=== PATIENT | female | born 1995 | race Hispanic/Latino ===

== ENCOUNTER 2017-10-08 05:44 | Emergency (ER) | payer BC ==
[2017-10-08 06:53] LABS: Albumin 4.6 g/dL (3.2-5.5); Bilirubin Direct 0.1 mg/dL (0-0.2); Bilirubin Total 0.5 mg/dL (0.3-1.2); Protein, Total 8.4 g/dL (6.0-8.3)
[2017-10-08] MEDS ORDERED: ONDANSETRON 4 MG/2 ML VIAL ONE (08:26)
[2017-10-08] MEDS ORDERED: KETOROLAC 30 MG/ML INJ ONE (08:26)
[2017-10-08] MEDS ORDERED: NA CHLORIDE 0.9% 1,000 ML ONE (08:26)
[2017-10-08 08:36] LABS: Absolute Lymphocytes (CBC) 3.8 K/uL (0.7-4.9); Absolute Monocytes 0.6 K/uL (0.1-1.3); Absolute Neutrophil 4.3 K/uL (1.8-8.0); Basophils % 0.5 % (0-1.3); Eosinophils % 0.9 % (0-4.4); Hematocrit 37.3 % (36.0-45.0); Lymphocytes % 43.3 % (15.3-44.8); MCH 23.9 pg (27.0-35.0); MCV 76.2 fL (80-100); MPV 9.5 fL (7.6-11.3); Monocytes % 6.3 % (3.3-12.3)
--- NOTE | 2017-10-08 08:45 | EDPHYS ---
Physician Documentation [facility] Name: Silvia Bradford Age: 22 yrs Sex: Female : 1995 Arrival Date: 10/08/2017 Time: 05:45 Bed 16 Private MD: ED Physician Gavin Yin HPI: 10/08 06:03 This 22 yrs old Female presents to ER via Ambulatory with complaints of kb Abdominal Pain. 06:03 The patient presents with abdominal pain in the right upper quadrant. Onset: The kb symptoms/episode began/occurred 2 week(s) ago. The symptoms do not radiate. Associated signs and symptoms: Pertinent positives: nausea, Pertinent negatives: anorexia, blood in stools, chest pain, constipation, diarrhea, dysuria, fever, headache, hematuria, palpitations, shortness of breath, vaginal discharge, vomiting, vomiting blood. The symptoms are described as achy. Modifying factors: The symptoms are alleviated by nothing, the symptoms are aggravated by food. Severity of pain: At its worst the pain was moderate in the emergency department the pain is unchanged. The patient has not experienced similar symptoms in the past. The patient has not recently seen a physician. 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 - Social history:: Smoking status: Patient/guardian denies using tobacco. ROS: 06:02 Constitutional: Negative for fever, chills, and weight loss, Cardiovascular: Negative kb for chest pain, palpitations, and edema, Respiratory: Negative for shortness of breath, cough, wheezing, and pleuritic chest pain, Back: Negative for injury and pain, : Negative for injury, bleeding, discharge, and swelling, MS/Extremity: Negative for injury and deformity, Skin: Negative for injury, rash, and discoloration, Neuro: Negative for headache, weakness, numbness, tingling, and seizure. 06:02 Abdomen/GI: Positive for abdominal pain, nausea, Negative for vomiting, diarrhea, constipation, abdominal cramps, abdominal distension, anorexia. Exam: 06:01 Constitutional: This is a well developed, well nourished patient who is awake, alert, kb and in no acute distress. Head/Face: Normocephalic, atraumatic. Chest/axilla: Normal chest wall appearance and motion. Nontender with no deformity. No lesions are appreciated. Cardiovascular: Regular rate and rhythm with a normal S1 and S2. No gallops, murmurs, or rubs. Normal PMI, no JVD. No pulse deficits. Respiratory: Lungs have equal breath sounds bilaterally, clear to auscultation and percussion. No rales, rhonchi or wheezes noted. No increased work of breathing, no retractions or nasal flaring. Back: No spinal tenderness. No costovertebral tenderness. Full range of motion. Skin: Warm, dry with normal turgor. Normal color with no rashes, no lesions, and no evidence of cellulitis. MS/ Extremity: Pulses equal, no cyanosis. Neurovascular intact. Full, normal range of motion. Neuro: Awake and alert, GCS 15, oriented to person, place, time, and situation. Cranial nerves II-XII grossly intact. Motor strength 5/5 in all extremities. Sensory grossly intact. Cerebellar exam normal. Normal gait. 06:01 Abdomen/GI: Inspection: abdomen appears normal, Bowel sounds: normal, in all quadrants, Palpation: soft, in all quadrants, nontender, in the left upper quadrant, right lower quadrant and left lower quadrant, moderate abdominal tenderness, in the right upper quadrant. Vital Signs: 06:04 BP 137 / 79; Pulse 81; Resp 16; Temp 97.9; Pulse Ox 100% on R/A; Weight 86.18 kg; aa1 Height 5 ft. 6 in. (167.64 cm); Pain 9/10; 07:15 BP 124 / 74; Pulse 76; Resp 18; Pulse Ox 99% on R/A; ph 08:16 BP 125 / 78; Pulse 78; Resp 15; Pulse Ox 98% on R/A; mh5 06:04 Body Mass Index 30.67 (86.18 kg, 167.64 cm) aa1 MDM: 05:57 Patient medically screened. kb 06:01 Data reviewed: vital signs, nurses notes. Data interpreted: Pulse oximetry: on room air kb is 100 %. Interpretation: normal. 08:39 Counseling: I had a detailed discussion with the patient and/or guardian regarding: the kb historical points, exam findings, and any diagnostic results supporting the discharge/admit diagnosis, lab results, radiology results, the need for outpatient follow up, a general surgeon, to return to the emergency department if symptoms worsen or persist or if there are any questions or concerns that arise at home. 10/08 06:01 Order name: Amylase, Serum; Complete Time: 08:39 kb 10/08 06:01 Order name: Basic Metabolic Panel; Complete Time: 08:39 kb 10/08 06:01 Order name: CBC with Diff; Complete Time: 08:39 kb 10/08 06:01 Order name: Hepatic Function; Complete Time: 08:39 kb 10/08 06:01 Order name: Lipase; Complete Time: 08:39 kb 10/08 06:38 Order name: Urine Dipstick--Ancillary (enter results) 10/08 06:01 Order name: Urine Test (obtain specimen); Complete Time: 06:32 kb 10/08 06:01 Order name: Labs collected and sent; Complete Time: 06:32 kb 10/08 06:01 Order name: US Abdomen Limited; Complete Time: 09:23 kb 10/08 06:38 Order name: Urine --Ancillary (enter results) 10/08 06:01 Order name: Urine Dipstick-Ancillary (obtain specimen); Complete Time: 06:32 kb Administered Medications: 08:48 Drug: Zofran 4 mg Route: IVP; Site: right antecubital; ph 08:48 Drug: NS 0.9% 1000 ml Route: IV; Rate: 1000 ml; Site: right antecubital; ph 08:49 Drug: TORadol 30 mg Route: IVP; Site: right antecubital; ph Disposition: 10/09 03:28 Co-signature as Attending Physician, Gavin Yin MD I agree with the assessment and 4 plan of care. Disposition: 10/08/17 08:44 Discharged to Home. Impression: Cholelithiasis. - Condition is Stable. - Discharge Instructions: Cholelithiasis, [id number]. - Prescriptions for Zofran 4 mg Oral Tablet - take 1 tablet by ORAL route every 6 hours As needed; 20 tablet. Diclofenac Sodium 75 mg Oral Tablet, Delayed Release (E.C.) - take 1 tablet by ORAL route 2 times per day As needed; 30 tablet. - Medication Reconciliation Form, Thank You Letter, Antibiotic Education, Prescription Opioid Use form. - Follow up: Emergency Department; When: As needed; Reason: Worsening of condition. Follow up: Private Physician; When: 2 - 3 days; Reason: Recheck today's complaints, Continuance of care, Re-evaluation by your physician. Signatures: Dispatcher [employer] EDMS Dolly Kc, FUR DRUMMER-C FUR DRUMMER-CkMarija Kaur, RN RN aa1 Deedee Elkins RN RN ph Gavin Yin MD MD tw4 Corrections: (The following items were deleted from the chart) 10/08 09:24 08:44 10/08/2017 08:44 Discharged to Home. Impression: Cholelithiasis. Condition is ph Stable. Discharge Instructions: Cholelithiasis, [id number]. Prescriptions for Zofran 4 mg Oral Tablet - take 1 tablet by ORAL route every 6 hours As needed; 20 tablet, Diclofenac Sodium 75 mg Oral Tablet, Delayed Release (E.C.) - take 1 tablet by ORAL route 2 times per day As needed; 30 tablet. and Forms are Medication Reconciliation Form, Thank You Letter, Antibiotic Education, Prescription Opioid Use. Follow up: Emergency Department; When: As needed; Reason: Worsening of condition. Follow up: Private Physician; When: 2 - 3 days; Reason: Recheck today's complaints, Continuance of care, Re-evaluation by your physician. kb
--- NOTE | 2017-10-08 08:45 | ER ---
Nurse's Notes [facility] Name: Silvia Bradford Age: 22 yrs Sex: Female : 1995 Arrival Date: 10/08/2017 Time: 05:45 Bed 16 Private MD: Diagnosis: Cholelithiasis Presentation: 10/08 06:01 Presenting complaint: Patient states: upper abd pain for past couple days which has aa1 become increasingly worse. States pain is worse after eating. Transition of care: patient was not received from another setting of care. Onset of symptoms was September 19, 2017. Initial Sepsis Screen: Does the patient meet any 2 criteria? No. Patient's initial sepsis screen is negative. Does the patient have a suspected source of infection? Yes: Acute abdominal pain. Care prior to arrival: None. 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 - Social history:: Smoking status: Patient/guardian denies using tobacco. Screenin:10 Abuse screen: Denies threats or abuse. Denies injuries from another. Nutritional bp screening: No deficits noted. Tuberculosis screening: No symptoms or risk factors identified. Fall Risk None identified. Assessment: 06:10 General: Appears in no apparent distress. uncomfortable, Behavior is calm, cooperative, bp appropriate for age. Pain: Complains of pain in right upper quadrant and left upper quadrant. Neuro: Level of Consciousness is awake, alert, obeys commands, Oriented to person, place, time, situation, Appropriate for age. Cardiovascular: No deficits noted. Respiratory: Airway is patent Respiratory effort is even, unlabored, Respiratory pattern is regular, symmetrical. GI: Bowel sounds present X 4 quads. Abd is soft X 4 quads Abdomen is tender to palpation in right upper quadrant and left upper quadrant. : No signs and/or symptoms were reported regarding the genitourinary system. EENT: No deficits noted. Derm: No deficits noted. Musculoskeletal: Circulation, motion, and sensation intact. Range of motion: intact in all extremities. 06:49 Reassessment: U/S COMPLETED. ALL CURRENT ORDERS IN PROCESS, RESULTS PENDING. bp 07:38 Reassessment: Patient appears in no apparent distress at this time. Patient and/or ph family updated on plan of care and expected duration. Pain level reassessed. Patient is alert, oriented x 3, equal unlabored respirations, skin warm/dry/pink. Pt resting quietly, awaiting lab results, VSS, will continue to monitor. 08:49 Reassessment: Patient appears in no apparent distress at this time. Patient and/or ph family updated on plan of care and expected duration. Pain level reassessed. Patient is alert, oriented x 3, equal unlabored respirations, skin warm/dry/pink. ERP at bedside to discuss lab and US results, awaiting discharge. Vital Signs: 06:04 BP 137 / 79; Pulse 81; Resp 16; Temp 97.9; Pulse Ox 100% on R/A; Weight 86.18 kg; aa1 Height 5 ft. 6 in. (167.64 cm); Pain 9/10; 07:15 BP 124 / 74; Pulse 76; Resp 18; Pulse Ox 99% on R/A; ph 08:16 BP 125 / 78; Pulse 78; Resp 15; Pulse Ox 98% on R/A; mh5 06:04 Body Mass Index 30.67 (86.18 kg, 167.64 cm) aa1 ED Course: 05:45 Patient arrived in ED. am2 05:54 Dolly Kc FNP-C is PHCP. kb 05:54 Kiran Griffin MD is Attending Physician. kb 05:54 Gavin Yin MD is Attending Physician. kb 06:00 Evens Palomares, KIMBERLEY is Primary Nurse. bp 06:02 Triage completed. aa1 06:04 Arm band placed on right wrist. Patient placed in an exam room, on a stretcher. aa1 06:10 Patient has correct armband on for positive identification. Bed in low position. Call bp light in reach. Side rails up X2. 06:33 Missed attempt(s): 20 gauge in left antecubital area. Bleeding controlled, band aid bp applied, catheter tip intact. 06:53 Ultrasound completed. Patient tolerated well. aa4 06:53 US Abdomen Limited In Process Unspecified. EDMS Administered Medications: 08:48 Drug: Zofran 4 mg Route: IVP; Site: right antecubital; ph 08:48 Drug: NS 0.9% 1000 ml Route: IV; Rate: 1000 ml; Site: right antecubital; ph 08:49 Drug: TORadol 30 mg Route: IVP; Site: right antecubital; ph Outcome: 08:44 Discharge ordered by . kb 09:24 Patient left the ED. ph Signatures: Dispatcher [employer] EDMS Dolly Kc, JAYME-C INSULATION MANAGER-Marija Lara RN RN aa1 Rosa Jauregui aa4 Deedee Elkins RN RN Charla Waite [facility] Rosa D[place] 2 Evens Palomares, RN RN bp
--- NOTE | 2017-10-08 09:18 | RAD REPORT ---
EXAM DESCRIPTION: US - Abdomen Exam Limited - 10/08/2017 6:54 am CLINICAL HISTORY: Abdominal pain. COMPARISON: 02/03/2010 FINDINGS: The gallbladder demonstrates 8 mm gallstone with contracted gallbladder noted. The patient is reported to not have been NPO prior to this ultrasound. No pericholecystic fluid or gallbladder w all thickening. The common bile duct is normal measuring 3 mm. The liver demonstrates no findings of intrahepatic biliary dilatation. IMPRESSION: Contracted gallbladder containing an 8 mm gallstone.
[2017-10-08 09:29] VITALS: TEMP 97.9
[2017-10-08 09:31] VITALS: BP 125/78; O2SAT 98
[2017-10-08 09:50] LABS: Urine Blood 2+ (NEG); Urine Glucose NEGATIVE (NEG); Urine Protein NEGATIVE (NEG)
== END 2017-10-08 09:24 | disposition home or self-care (01) ==
LOC: ER 05:44
DX: K80.20 Calculus of gallbladder without cholecystitis without obstruction (principal); I10 Essential (primary) hypertension; Z88.0 Allergy status to penicillin; Z88.1 Allergy status to other antibiotic agents; Z88.3 Allergy status to other anti-infective agents
CPT/HCPCS: 36415; 76705; 80048; 80076; 81003; 81025; 82150; 83690; 85025; 96374; 96375; 99283; J2405; J7030

== ENCOUNTER 2017-10-15 06:23 | Emergency (ER) | payer BC ==
[2017-10-15] MEDS ORDERED: NA CHLORIDE 0.9% 1,000 ML ONE (06:58)
[2017-10-15] MEDS ORDERED: KETOROLAC 30 MG/ML INJ ONE (06:58)
[2017-10-15 07:09] LABS: Absolute Lymphocytes (CBC) 3.3 K/uL (0.7-4.9); Absolute Monocytes 0.5 K/uL (0.1-1.3); Absolute Neutrophil 3.2 K/uL (1.8-8.0); Basophils % 0.5 % (0-1.3); Eosinophils % 1.5 % (0-4.4); Hematocrit 36.5 % (36.0-45.0); Lymphocytes % 46.5 % (15.3-44.8); MCH 23.7 pg (27.0-35.0); MPV 9.2 fL (7.6-11.3); Monocytes % 6.9 % (3.3-12.3); RBC Red Blood Cell Count 4.81 M/uL (3.86-4.86)
[2017-10-15 07:11] LABS: Bicarbonate 28 mEq/L (21-31); Glucose Level 95 mg/dL (65-120); Lipase 33 U/L (22-51); Potassium 3.8 mEq/L (3.6-5.0); Sodium Level 138 mEq/L (135-145)
[2017-10-15 07:17] LABS: ALT/SGPT 23 IU/L (10-60); AST/SGOT 28 IU/L (10-42); Albumin 4.1 g/dL (3.2-5.5); Alkaline Phosphatase 67 IU/L (42-121); Amylase Level 57 U/L (28-100); BUN Blood Urea Nitrogen 11 mg/dL (6-20); Bilirubin Direct < 0.1 mg/dL (0-0.2); Bilirubin Total 0.3 mg/dL (0.3-1.2); Protein, Total 7.6 g/dL (6.0-8.3)
--- NOTE | 2017-10-15 08:38 | RAD REPORT ---
EXAM DESCRIPTION: CT - Abdomen Pelvis W Contrast - 10/15/2017 8:13 am CLINICAL HISTORY: Abdominal pain with right upper quadrant pain for 1 month COMPARISON: none. TECHNIQUE: Computed axial tomography of the abdomen pelvis was obtained. 100 cc Isovue-300 was admin istered intravenously. Oral contrast was not requested which limits evaluation of bowel. All CT scans are performed using dose optimization technique as appropriate and may include automated exposure control or mA/KV adjustment according to patient size. FINDINGS: The liver, spleen, pancreas, adrenal and kidneys appear unremarkable. There is no evidence of diverticulitis. The appendix is normal. An adnexal mass is not seen IMPRESSION: No acute abnormality is displayed.
--- NOTE | 2017-10-15 08:46 | EDPHYS ---
Physician Documentation [facility] Name: Silvia Bradford Age: 22 yrs Sex: Female : 1995 Arrival Date: 10/15/2017 Time: 06:26 Bed 14 Private MD: ED Physician Homero Buchanan HPI: 10/15 06:44 This 22 yrs old Female presents to ER via Unassigned with complaints of kb Abdominal Pain. 06:44 The patient presents with abdominal pain in the right upper quadrant. Onset: The kb symptoms/episode began/occurred 1 month(s) ago. The symptoms do not radiate. Associated signs and symptoms: Pertinent positives: nausea and vomiting, Pertinent negatives: anorexia, blood in stools, chest pain, constipation, diarrhea, dysuria, fever, headache, hematuria, palpitations, shortness of breath, vaginal discharge, vomiting blood. The symptoms are described as sharp. Modifying factors: The symptoms are alleviated by nothing, the symptoms are aggravated by food, pressure. Severity of pain: At its worst the pain was moderate in the emergency department the pain is unchanged. The patient has not experienced similar symptoms in the past. The patient has been recently seen by a physician: Dr. briceno The patient has been recently seen at the [facility] Emergency Department, last week, for similar complaints labs were performed, an ultrasound was performed, was given a prescription for pain medications, was given a prescription for an antiemetic. Pt reports RUQ pain for one month. Was seen here one week ago and diagnosed with cholelithiasis. Pt followed up with Dr Briceno's office and was told she needed a hyda scan, but she is not able to get it done until the end of the month. States the pain medication she was prescribed only works for a short time and then the pain comes back. . Historical: - Allergies: 06:48 Bactrim; mg2 06:48 PENICILLINS; mg2 06:48 Clindamycin; mg2 06:48 Demerol; mg2 - Home Meds: 06:48 Testosterone IM every 10 days [Active]; mg2 - PMHx: 06:48 EAR ACHES; Migraines; Hypertension; mg2 - Immunization history:: Flu vaccine is up to date. - Social history:: Smoking status: unknown. ROS: 06:43 Constitutional: Negative for fever, chills, and weight loss, Cardiovascular: Negative kb for chest pain, palpitations, and edema, Respiratory: Negative for shortness of breath, cough, wheezing, and pleuritic chest pain, Back: Negative for injury and pain, : Negative for injury, bleeding, discharge, and swelling, MS/Extremity: Negative for injury and deformity, Skin: Negative for injury, rash, and discoloration, Neuro: Negative for headache, weakness, numbness, tingling, and seizure. 06:43 Abdomen/GI: Positive for abdominal pain, nausea and vomiting, Negative for diarrhea, constipation, abdominal cramps, abdominal distension, anorexia. Exam: 06:44 Constitutional: This is a well developed, well nourished patient who is awake, alert, kb and in no acute distress. Head/Face: Normocephalic, atraumatic. Chest/axilla: Normal chest wall appearance and motion. Nontender with no deformity. No lesions are appreciated. Cardiovascular: Regular rate and rhythm with a normal S1 and S2. No gallops, murmurs, or rubs. Normal PMI, no JVD. No pulse deficits. Respiratory: Lungs have equal breath sounds bilaterally, clear to auscultation and percussion. No rales, rhonchi or wheezes noted. No increased work of breathing, no retractions or nasal flaring. Back: No spinal tenderness. No costovertebral tenderness. Full range of motion. Skin: Warm, dry with normal turgor. Normal color with no rashes, no lesions, and no evidence of cellulitis. MS/ Extremity: Pulses equal, no cyanosis. Neurovascular intact. Full, normal range of motion. Neuro: Awake and alert, GCS 15, oriented to person, place, time, and situation. Cranial nerves II-XII grossly intact. Motor strength 5/5 in all extremities. Sensory grossly intact. Cerebellar exam normal. Normal gait. 06:44 Abdomen/GI: Inspection: abdomen appears normal, Bowel sounds: normal, in all quadrants, Palpation: soft, in all quadrants, nontender, in the left upper quadrant, right lower quadrant and left lower quadrant, moderate abdominal tenderness, in the right upper quadrant. Vital Signs: 06:49 BP 150 / 89; Pulse 65; Resp 18; Temp 99.2; Pulse Ox 100% on R/A; Weight 86.18 kg; mg2 Height 5 ft. 6 in. (167.64 cm); Pain 10/10; 07:22 BP 113 / 93; Pulse 72; Resp 16; Pulse Ox 100% ; Pain 8/10; jl7 08:07 BP 136 / 76; Pulse 69; Resp 16; Pulse Ox 100% ; jl7 06:49 Body Mass Index 30.67 (86.18 kg, 167.64 cm) mg2 MDM: 06:41 Patient medically screened. kb 06:43 Data reviewed: vital signs, nurses notes. Data interpreted: Pulse oximetry: on room air kb is 100 %. Interpretation: normal. 08:45 Counseling: I had a detailed discussion with the patient and/or guardian regarding: the kb historical points, exam findings, and any diagnostic results supporting the discharge/admit diagnosis, lab results, radiology results, the need for outpatient follow up, a general surgeon, a utilization management um nurse, to return to the emergency department if symptoms worsen or persist or if there are any questions or concerns that arise at home. 10/15 06:41 Order name: Amylase, Serum; Complete Time: 07:19 kb 10/15 06:41 Order name: Basic Metabolic Panel; Complete Time: 07:19 kb 10/15 06:41 Order name: CBC with Diff; Complete Time: 07:16 kb 10/15 06:41 Order name: Hepatic Function; Complete Time: 07:19 kb 10/15 06:41 Order name: Lipase; Complete Time: 07:19 kb 10/15 07:58 Order name: Urine Dipstick--Ancillary (enter results) bd 10/15 06:41 Order name: Urine Test (obtain specimen); Complete Time: 07:44 kb 10/15 06:41 Order name: IV Saline Lock; Complete Time: 06:56 kb 10/15 06:41 Order name: Labs collected and sent; Complete Time: 07:03 kb 10/15 06:41 Order name: Urine Dipstick-Ancillary (obtain specimen); Complete Time: 07:45 kb 10/15 06:41 Order name: CT Abd/Pelvis - W/Contrast; Complete Time: 08:38 kb 10/15 07:58 Order name: Urine --Ancillary (enter results) bd Administered Medications: 07:03 Drug: NS 0.9% 1000 ml Route: IV; Rate: 1000 ml; Site: right antecubital; mg2 08:00 Follow up: IV Status: Completed infusion jl7 07:03 Drug: TORadol 30 mg Route: IVP; Site: right antecubital; mg2 07:25 Follow up: Response: No adverse reaction; Pain is decreased jl7 Disposition: 10/15/17 08:46 Discharged to Home. Impression: Cholelithiasis. - Condition is Stable. - Discharge Instructions: Biliary Colic, Cholelithiasis, [id number]. - Prescriptions for Tramadol 50 mg Oral Tablet - take 1 tablet by ORAL route every 8 hours as needed; 12 tablet. - Medication Reconciliation Form, Thank You Letter, Antibiotic Education, Prescription Opioid Use form. - Follow up: Emergency Department; When: As needed; Reason: Worsening of condition. Follow up: Private Physician; When: 2 - 3 days; Reason: Recheck today's complaints, Continuance of care, Re-evaluation by your physician. Addendum: 11/04/2017 19:03 Co-signature as Attending Physician, Homero Buchanan MD. p winston Signatures: Dispatcher [employer] EDMS Dolly Kc, FAMILY COURT REGISTRAR-C FAMILY COURT REGISTRAR-Ckb Homero Buchanan MD MD pkl Ziggy Rees RN RN jl7 Dwain Aquino RN RN mg2 Corrections: (The following items were deleted from the chart) 10/15 08:57 08:46 10/15/2017 08:46 Discharged to Home. Impression: Cholelithiasis. Condition is jl7 Stable. Forms are Medication Reconciliation Form, Thank You Letter, Antibiotic Education, Prescription Opioid Use. Follow up: Emergency Department; When: As needed; Reason: Worsening of condition. Follow up: Private Physician; When: 2 - 3 days; Reason: Recheck today's complaints, Continuance of care, Re-evaluation by your physician. kb
--- NOTE | 2017-10-15 08:46 | ER ---
Nurse's Notes [facility] Name: Silvia Bradford Age: 22 yrs Sex: Female : 1995 Arrival Date: 10/15/2017 Time: 06:26 Bed 14 Private MD: Diagnosis: Cholelithiasis Presentation: 10/15 06:41 Presenting complaint: Patient states: she has RUQ Pain-X 1 month and she was here last mg2 Sunday for that complaint. she also is nauseated and dizzy for the past couple of days. she was told she needed a hyda scan but not scheduled til end of the month. Transition of care: patient was not received from another setting of care. Onset of symptoms was August 2017. Initial Sepsis Screen: Does the patient meet any 2 criteria? No. Patient's initial sepsis screen is negative. Does the patient have a suspected source of infection? No. Patient's initial sepsis screen is negative. Care prior to arrival: None. 06:41 Method Of Arrival: Ambulatory mg2 06:41 Acuity: RIZWANA 3 mg2 Historical: - Allergies: 06:48 Bactrim; mg2 06:48 PENICILLINS; mg2 06:48 Clindamycin; mg2 06:48 Demerol; mg2 - Home Meds: 06:48 Testosterone IM every 10 days [Active]; mg2 - PMHx: 06:48 EAR ACHES; Migraines; Hypertension; mg2 - Immunization history:: Flu vaccine is up to date. - Social history:: Smoking status: unknown. Screenin:52 Abuse screen: Denies threats or abuse. Denies injuries from another. Nutritional mg2 screening: No deficits noted. Tuberculosis screening: No symptoms or risk factors identified. Fall Risk 06:53 Fall Risk IV access (20 points). mg2 Assessment: 06:50 General: Appears in no apparent distress. comfortable, Behavior is calm, cooperative. mg2 Pain: Complains of pain in abdomen Pain does not radiate. Pain Pain began 1 month ago Is intermittent. Neuro: Level of Consciousness is awake, alert, obeys commands, Oriented to person, place, time, Seizure activity. Cardiovascular: Capillary refill < 3 seconds Patient's skin is warm and dry. Respiratory: Airway is patent Respiratory effort is even, unlabored, Respiratory pattern is regular, symmetrical. GI: Abdomen is non-distended, Reports lower abdominal pain, nausea. : No signs and/or symptoms were reported regarding the genitourinary system. EENT: Derm: Skin is intact, Skin is pink, warm \\T\\ dry. normal. Musculoskeletal: No signs and/or symptoms reported regarding the musculoskeletal system. 07:22 Reassessment: Pt sitting in bed, bolus infusing, updated on plan of care at this time. jl7 Pt states "The medication helped a little." Pain rated 8/10. VSS. 08:07 Reassessment: Patient and/or family updated on plan of care and expected duration. Pain jl7 level reassessed. Patient is alert, oriented x 3, equal unlabored respirations, skin warm/dry/pink. Vital Signs: 06:49 BP 150 / 89; Pulse 65; Resp 18; Temp 99.2; Pulse Ox 100% on R/A; Weight 86.18 kg; mg2 Height 5 ft. 6 in. (167.64 cm); Pain 10/10; 07:22 BP 113 / 93; Pulse 72; Resp 16; Pulse Ox 100% ; Pain 8/10; jl7 08:07 BP 136 / 76; Pulse 69; Resp 16; Pulse Ox 100% ; jl7 06:49 Body Mass Index 30.67 (86.18 kg, 167.64 cm) mg2 ED Course: 06:26 Patient arrived in ED. al2 06:30 Dolly Kc FNP-C [facility]. kb 06:30 Homero Buchanan MD is Attending Physician. kb 06:38 Dwain Aquino, RN is Primary Nurse. mg2 06:47 Triage completed. mg2 06:49 Arm band placed on right wrist. mg2 06:50 Radiology exam delayed due to lab results not completed at this time. (BUN/Creatinine). cw1 06:53 Patient has correct armband on for positive identification. Side rails up X 1. mg2 06:54 Radiology exam delayed due to IV insertion attempt and/or patient not having cw1 appropriate IV at this time. 06:56 Inserted saline lock: 20 gauge in right antecubital area, using aseptic technique. mg2 Blood collected. 07:18 Primary Nurse role handed off by Dwain Aquino, RN jl7 07:18 Ziggy Rees, KIMBERLEY is Primary Nurse. jl7 07:[address] via wheelchair. nj 08:13 CT Abd/Pelvis - W/Contrast In Process Unspecified. EDMS 08:14 CT completed. Patient tolerated procedure well. Patient moved back from CT. mw3 08:55 No provider procedures requiring assistance completed. IV discontinued, intact, jl7 bleeding controlled, No redness/swelling at site. Pressure dressing applied. Administered Medications: 07:03 Drug: NS 0.9% 1000 ml Route: IV; Rate: 1000 ml; Site: right antecubital; mg2 08:00 Follow up: IV Status: Completed infusion jl7 07:03 Drug: TORadol 30 mg Route: IVP; Site: right antecubital; mg2 07:25 Follow up: Response: No adverse reaction; Pain is decreased jl7 Outcome: 08:46 Discharge ordered by . hayley 08:55 Discharged to home ambulatory. jl7 08:55 Condition: stable 08:55 Discharge instructions given to patient, Instructed on discharge instructions, follow up and referral plans. medication usage, Demonstrated understanding of instructions, follow-up care, medications, Prescriptions given X 1. 08:57 Patient left the ED. jl7 Signatures: Dispatcher [employer] EDMS Dolly Kc, AUTOMATIC PRESSER-C AUTOMATIC PRESSER-CkVeronica Barron cw1 Fernandez Julien Jahala RN RN jl7 Yin Hines al2 Dwain Aquino, KIMBERLEY RN mg2 Marcela Samuels mw3 Corrections: (The following items were deleted from the chart) 06:53 06:52 Fall Risk mg2 mg2 07:04 06:50 GI: Abdomen is mg2 mg2 07:25 07:22 Reassessment: Pt sitting in bed, bolus infusing, updated on plan of care at this jl7 time. Pt denies pain at this time. VSS. jl7
[2017-10-15 09:01] VITALS: TEMP 99.2; O2SAT 100
[2017-10-15 09:04] VITALS: BP 136/76
[2017-10-15 13:12] LABS: Urine Blood NEGATIVE (NEG); Urine Glucose NEGATIVE (NEG); Urine Protein NEGATIVE (NEG); Urine Specific Gravity 1.015 (1.005-1.030)
== END 2017-10-15 08:57 | disposition home or self-care (01) ==
LOC: ER 06:23
DX: K80.20 Calculus of gallbladder without cholecystitis without obstruction (principal); I10 Essential (primary) hypertension; Z88.0 Allergy status to penicillin; Z88.1 Allergy status to other antibiotic agents; Z88.3 Allergy status to other anti-infective agents; Z88.5 Allergy status to narcotic agent
CPT/HCPCS: 36415; 74177; 80048; 80076; 81003; 81025; 82150; 83690; 85025; 96361; 96374; 99284; J7030; Q9967

== ENCOUNTER 2017-10-29 10:16 | Day surgery (SDC) | payer BC ==
[2017-10-29] MEDS ORDERED: CIPROFLOXACIN 400mg IV 400 MG/200 ML BAG IV ONE (10:47)
[2017-10-29 10:52] LABS: Absolute Lymphocytes (CBC) 3.1 K/uL (0.7-4.9); Absolute Monocytes 0.5 K/uL (0.1-1.3); Absolute Neutrophil 4.2 K/uL (1.8-8.0); Basophils % 0.6 % (0-1.3); Eosinophils % 1.1 % (0-4.4); Hematocrit 37.7 % (36.0-45.0); Lymphocytes % 39.5 % (15.3-44.8); MCH 23.6 pg (27.0-35.0); MPV 9.6 fL (7.6-11.3); Monocytes % 6.2 % (3.3-12.3); RBC Red Blood Cell Count 5.03 M/uL (3.86-4.86)
[2017-10-29 10:54] LABS: Specific Gravity 1.025 (1.005-1.030)
[2017-10-29 11:08] LABS: Bicarbonate 26 mEq/L (21-31); Glucose Level 86 mg/dL (65-120); Lipase 25 U/L (22-51); Potassium 3.5 mEq/L (3.6-5.0); Sodium Level 138 mEq/L (135-145)
[2017-10-29] MEDS ORDERED: PROPOFOL 200 MG/20 ML VIAL IV ONE (11:12)
[2017-10-29] MEDS ORDERED: ROCURONIUM 50 MG/5 ML VIAL IV ONE ×2 (11:13→11:14)
[2017-10-29] MEDS ORDERED: FENTANYL CITR 100 MCG/2 ML ONE ×2 (11:13→12:17)
[2017-10-29] MEDS ORDERED: ONDANSETRON HCL 40 MG/20 ML VIAL ONE (11:13)
[2017-10-29 11:14] LABS: ALT/SGPT 24 IU/L (10-60); AST/SGOT 26 IU/L (10-42); Albumin 4.4 g/dL (3.2-5.5); Alkaline Phosphatase 75 IU/L (42-121); Amylase Level 45 U/L (28-100); BUN Blood Urea Nitrogen 10 mg/dL (6-20); Bilirubin Direct 0.1 mg/dL (0-0.2); Bilirubin Total 0.5 mg/dL (0.3-1.2); Protein, Total 7.9 g/dL (6.0-8.3)
[2017-10-29] MEDS ORDERED: MIDAZOLAM HCL 2 MG/2 ML INJ ONE (11:14)
[2017-10-29] MEDS ORDERED: GLYCOPYRROLATE 0.2 MG/ML SYR ONE (11:14)
[2017-10-29] MEDS: Ringers Lactate 1,000 ML IV ONE ×2 (11:48→11:49)
[2017-10-29] MEDS ORDERED: NEOSTIGMINE 1 MG/ML -5 ML SYRINGE ONE (11:51)
[2017-10-29] MEDS: BUPIVACAINE 0.5% Inj,MDV 50 mL VIAL ONE ×2 (11:54→12:08)
[2017-10-29] MEDS ORDERED: Mastisol Adhesive Liq ONE (12:35)
--- NOTE | 2017-10-29 12:46 | P.BOP ---
Preoperative diagnosis: symptomatic cholelithiasis, biliary dyskinesia, RUQ abd pain Postoperative diagnosis: same Primary procedure: Laparoscopic cholecystectomy Ibm Websphere Commerce Developer: Cheyanne Hutchinson) Estimated blood loss: <10cc Specimen: gb Findings: as above Anesthesia: General Complications: None Transferred to: Recovery Room Condition: Good
[2017-10-29] MEDS ORDERED: MEPERIDINE HCL 50 MG/ML AMP ONE ×2 (12:59→13:23)
[2017-10-29] MEDS ORDERED: MORPHINE 4 MG/ML SYR ONE ×2 (13:00→13:10)
[2017-10-29] MEDS ORDERED: KETOROLAC 30 MG/ML INJ ONE (13:29)
[2017-10-29 13:47] VITALS: O2SAT 98
[2017-10-29] MEDS ORDERED: CODEINE 30MG/APAP 300MG TAB ONE (14:54)
[2017-10-29] MEDS ORDERED: HYDROCODONE/APAP 10/325 TAB ONE (15:34)
[2017-10-29 15:51] VITALS: BP 132/78; TEMP 97.5
--- NOTE | 2017-10-30 00:33 | DS ---
Date of Discharge: 10/29/2017 Diagnoses: Symptomatic cholelithiasis, acute cholecystitis, biliary dyskinesia, right upper quadrant abdominal pain. Procedure: Laparoscopic cholecystectomy. Disposition: Home. Activity: As tolerated. No heavy lifting. Followup: Follow up in my office in 1 week. Call for appointment [phone]. Keep area dry for 48 ho urs, then may shower. Keep Steri-Strips intact. Medications: Tylenol No. 3 q.4 hours p.r.n. pain, Cipro 500 p.o. q.12. SHANA/ANGEL Voice ID: [id number] Report ID: [id number]
--- NOTE | 2017-10-30 00:33 | OP ---
Date of Procedure: 10/29/2017 Surgeon: Bryan Waite MD Bit Sharpener: DANIEL Gant. Preoperative Diagnoses: Symptomatic cholelithiasis, biliary dyskinesia, right upper quadrant abdomin al pain. Postoperative Diagnoses: Symptomatic cholelithiasis, biliary dyskinesia, right upper quadrant abdomi nal pain. Procedure: Laparoscopic cholecystectomy. Specimen: Gallbladder. Anesthesia: General plus local. Indications: This is a case of a 22-year-old patient, comes to us with above diagnosis. Fully expla ined the benefits, alternatives, and risks of laparoscopic, possible open cholecystectomy which inclu de, but not limited to infection, bleeding, damage to adjacent structures, anesthesia complication, c holedocholithiasis, bile leak, pancreatitis, GA, and even . She also understands this may not r elieve any symptoms. She might need more than one surgical intervention. She understood, signed a c onsent. Description Of Procedure: The patient was brought to the operating room, placed in supine position. Anesthesia was done without complication. Abdominal area was prepped and draped in a sterile fashio n. Marcaine 0.5% was injected for local anesthetic, followed by sharp incision of the skin in the in fraumbilical region. Incision was carried down to fascia, which was opened under direct vision. Per itoneum was encountered, opened under direct vision. Vicryl #1 was placed inside the fascia. Selina trocar was carefully introduced. No bleeding was obtained. I placed 3 more trocars, 5 mm each one of them, in the right upper quadrant under direct visualization. This allowed me to put a grasper in the fundus of the gallbladder, another grasper in the infundibulum, retracted the gallbladder in inf erolateral fashion exposing the triangle of Calot obtaining critical view of safety. The cystic duct and artery were cleared isolated, freed circumferentially, and a connection between those and the ga llbladder were clearly identified. I proceeded to ligate those by using at least 3 clips proximal, 1 clip distal, and ligation in middle. Same was done with the cystic artery. No bile leak. No bleed ing. The gallbladder was removed from liver using Bovie cauterizer and removed from abdominal cavity using an EndoCatch through the umbilical incision. The area was inspected once again; no bile leak, no bleeding. Clips were intact. Gallbladder fossa with no bleeding. At that moment, I proceeded t o remove the trocars under direct vision, deflated pneumoperitoneum, closed the fascia with #1 Vicryl , irrigated the subcutaneous tissue, closed that with 3-0 chromic and skin in a subcuticular fashion with 3-0 chromic and a Steri-Strip on top. Sponge count and instrument counts were correct. The pat ient tolerated the procedure well. The patient was sent to Recovery in stable condition. SHANA/ANGEL Voice ID: [id number] Report ID: [id number]
== END 2017-10-29 15:48 | disposition home or self-care (01) ==
LOC: OR 10:16
PROVIDERS: ATTEND Surgery
PROC: 0FT44ZZ Resection of Gallbladder, Percutaneous Endoscopic Approach (ICD-10-PCS; principal; 2017-10-29 12:00)
DX: K80.10 Calculus of gallbladder with chronic cholecystitis without obstruction (principal); K82.8 Other specified diseases of gallbladder; Z88.0 Allergy status to penicillin; Z88.3 Allergy status to other anti-infective agents
CPT/HCPCS: 36415; 80048; 80076; 81025; 82150; 83690; 85025; 88304; J0744; J2175; J2250; J2405; J2710; J3010

== ENCOUNTER 2018-02-27 22:04 | Emergency (ER) | payer BC ==
--- NOTE | 2018-02-27 23:39 | ER ---
Nurse's Notes [facility] Name: Silvia Bradford Age: 23 yrs Sex: Female : 1995 Arrival Date: 02/27/2018 Time: 22:13 Bed 30 Private MD: Diagnosis: Acute serous otitis media, right ear Presentation: 02/27 22:19 Presenting complaint: Patient states: that 1 week ago she started to have right neck fc pain. Thought it was just they way she was sleeping. Then 3 days ago she started to have right ear pain and sore throat. Denies any fever. Transition of care: patient was not received from another setting of care. Onset of symptoms was February 20, 2018. Risk Assessment: Do you want to hurt yourself or someone else? Patient reports no desire to harm self or others. Initial Sepsis Screen: Does the patient meet any 2 criteria? HR > 90 bpm. Yes Does the patient have a suspected source of infection? No. Patient's initial sepsis screen is negative. Care prior to arrival: None. 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 - Social history:: Smoking status: Patient/guardian denies using tobacco, Patient/guardian denies using alcohol, street drugs. - Ebola Screening: : Patient negative for fever greater than or equal to 101.5 degrees Fahrenheit, and additional compatible Ebola Virus Disease symptoms Patient denies exposure to infectious person Patient denies travel to an Ebola-affected area in the 21 days before illness onset. Screenin:28 Abuse screen: Denies threats or abuse. Denies injuries from another. Nutritional mg2 screening: No deficits noted. Tuberculosis screening: No symptoms or risk factors identified. Fall Risk None identified. Assessment: 22:32 General: Appears in no apparent distress. comfortable, Behavior is calm, cooperative. mg2 Pain: Complains of pain in right ear and right side of the neck Pain does not radiate. Pain currently is 6 out of 10 on a pain scale. Quality of pain is described as aching, Pain began gradually, 8 days ago. Neuro: Level of Consciousness is awake, alert, obeys commands, Oriented to person, place, time, situation. Cardiovascular: Capillary refill < 3 seconds Patient's skin is warm and dry. Respiratory: Airway is patent Respiratory effort is even, unlabored, Respiratory pattern is regular, symmetrical. GI: No signs and/or symptoms were reported involving the gastrointestinal system. : No signs and/or symptoms were reported regarding the genitourinary system. EENT: No signs and/or symptoms were reported regarding the EENT system. EENT: No signs and/or symptoms were reported regarding the EENT system. Ear canal clear on both ears. Derm: Skin is intact, Skin is pink, warm \T\ dry. normal. Musculoskeletal: No signs and/or symptoms reported regarding the musculoskeletal system. Vital Signs: 22:23 BP 152 / 107; Pulse 109; Resp 20; Temp 98.2(O); Pulse Ox 99% on R/A; Weight 86.18 kg fc (R); Height 5 ft. 6 in. (167.64 cm) (R); Pain 9/10; 23:12 BP 134 / 75; Pulse 101; Resp 18; Pulse Ox 100% on R/A; mg2 22:23 Body Mass Index 30.67 (86.18 kg, 167.64 cm) fc ED Course: 22:13 Patient arrived in ED. al2 22:21 Triage completed. fc 22:26 Arm band placed on Patient placed in an exam room, on a stretcher. fc 22:32 Dwain Aquino, KIMBERLEY is Primary Nurse. mg2 22:34 No provider procedures requiring assistance completed. Patient did not have IV access mg2 during this emergency room visit. 23:05 Vicky Tran FNP-C [facility]. snw 23:05 Gavin Yin MD is Attending Physician. snw 23:51 Patient has correct armband on for positive identification. mg2 Administered Medications: 23:49 Drug: TORadol 60 mg Route: IM; Site: right gluteus; mg2 23:50 Follow up: Response: No adverse reaction; Medication administered at discharge. mg2 23:50 Drug: Zithromax 500 mg Route: PO; mg2 23:50 Follow up: Response: No adverse reaction; Medication administered at discharge. mg2 Outcome: 23:39 Discharge ordered by MD. ray 23:50 Discharged to home ambulatory. mg2 23:50 Condition: stable 23:50 Discharge instructions given to patient, Instructed on discharge instructions, follow up and referral plans. medication usage, Demonstrated understanding of instructions, follow-up care, medications, Prescriptions given X 2. 23:51 Patient left the ED. mg2 Signatures: Vicky Tran, LIAISON ENGINEER-C LIAISON ENGINEER-Csnw Dennise Ivey, RN RN Yin Anne Michele, RN RN mg2 Corrections: (The following items were deleted from the chart) 22:26 22:19 Initial Sepsis Screen: Does the patient meet any 2 criteria? No. Patient's fc initial sepsis screen is negative. Does the patient have a suspected source of infection? No. Patient's initial sepsis screen is negative. fc
--- NOTE | 2018-02-27 23:39 | EDPHYS ---
Physician Documentation [facility] Name: Silvia Bradford Age: 23 yrs Sex: Female : 1995 Arrival Date: 02/27/2018 Time: 22:13 Bed 30 Private MD: ED Physician Gavin Yin HPI: 02/27 23:48 This 23 yrs old Female presents to ER via Ambulatory with complaints of Neck snw Problem. 23:48 The patient or guardian complains of pain, that is acute. The symptoms are located on snw the right submandibular area and right sternocleidomastoid. Onset: The symptoms/episode began/occurred gradually, 1 week(s) ago, and became persistent. Context: The problem was sustained at home, The neck injury/problem resulted from from unknown cause. Associated signs and symptoms: Pertinent positives: ear pain started 2-3 day ago. Severity of symptoms: At their worst the symptoms were mild, moderate, in the emergency department the symptoms are unchanged. The patient has experienced similar episodes in the past. It is unknown whether or not the patient has recently seen a physician. pt states she sees an ENT and will make an appt. 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 - Social history:: Smoking status: Patient/guardian denies using tobacco, Patient/guardian denies using alcohol, street drugs. - Ebola Screening: : Patient negative for fever greater than or equal to 101.5 degrees Fahrenheit, and additional compatible Ebola Virus Disease symptoms Patient denies exposure to infectious person Patient denies travel to an Ebola-affected area in the 21 days before illness onset. ROS: 23:46 Constitutional: Negative for fever, chills, and weight loss, Eyes: Negative for injury, snw pain, redness, and discharge, ENT: Negative for injury and discharge, + right ear pain Neck: Negative for injury and swelling, + pain to right anterior cervical chain Cardiovascular: Negative for chest pain, palpitations, and edema, Respiratory: Negative for shortness of breath, cough, wheezing, and pleuritic chest pain, Abdomen/GI: Negative for abdominal pain, nausea, vomiting, diarrhea, and constipation, Back: Negative for injury and pain, : Negative for injury, bleeding, discharge, and swelling, MS/Extremity: Negative for injury and deformity, Skin: Negative for injury, rash, and discoloration, Neuro: Negative for headache, weakness, numbness, tingling, and seizure. Exam: 23:47 Head/Face: Normocephalic, atraumatic. Eyes: Pupils equal round and reactive to light, snw extra-ocular motions intact. Lids and lashes normal. Conjunctiva and sclera are non-icteric and not injected. Cornea within normal limits. Periorbital areas with no swelling, redness, or edema. Chest/axilla: Normal chest wall appearance and motion. Nontender with no deformity. No lesions are appreciated. Cardiovascular: Regular rate and rhythm with a normal S1 and S2. No gallops, murmurs, or rubs. Normal PMI, no JVD. No pulse deficits. Respiratory: Lungs have equal breath sounds bilaterally, clear to auscultation and percussion. No rales, rhonchi or wheezes noted. No increased work of breathing, no retractions or nasal flaring. Abdomen/GI: Soft, non-tender, with normal bowel sounds. No distension or tympany. No guarding or rebound. No evidence of tenderness throughout. Back: No spinal tenderness. No costovertebral tenderness. Full range of motion. Skin: Warm, dry with normal turgor. Normal color with no rashes, no lesions, and no evidence of cellulitis. MS/ Extremity: Pulses equal, no cyanosis. Neurovascular intact. Full, normal range of motion. Neuro: Awake and alert, GCS 15, oriented to person, place, time, and situation. Cranial nerves II-XII grossly intact. Motor strength 5/5 in all extremities. Sensory grossly intact. Cerebellar exam normal. Normal gait. Psych: Awake, alert, with orientation to person, place and time. Behavior, mood, and affect are within normal limits. 23:47 Constitutional: The patient appears alert, awake, well developed, well hydrated, uncomfortable. 23:47 ENT: TM's: bulging, decreased mobility, fluid levels, Nose: is normal, Mouth: is normal, Posterior pharynx: Uvula: edematous, mild, Voice: deep. 23:47 Neck: External neck: is normal, C-spine: appears grossly normal, ROM/movement: is normal, Lymph nodes: lymphadenopathy is appreciated, anterior cervical nodes. Vital Signs: 22:23 BP 152 / 107; Pulse 109; Resp 20; Temp 98.2(O); Pulse Ox 99% on R/A; Weight 86.18 kg fc (R); Height 5 ft. 6 in. (167.64 cm) (R); Pain 9/10; 23:12 BP 134 / 75; Pulse 101; Resp 18; Pulse Ox 100% on R/A; mg2 22:23 Body Mass Index 30.67 (86.18 kg, 167.64 cm) fc MDM: 23:25 Patient medically screened. snw 23:43 Data reviewed: vital signs, nurses notes. Data interpreted: Pulse oximetry: on room air snw is 100 %. Interpretation: normal. Counseling: I had a detailed discussion with the patient and/or guardian regarding: the historical points, exam findings, and any diagnostic results supporting the discharge/admit diagnosis, the need for outpatient follow up, for definitive care, to return to the emergency department if symptoms worsen or persist or if there are any questions or concerns that arise at home. Special discussion: I have referred the patient to see his PCP for further evaluation of high blood pressure. Based on the history and exam findings, there is no indication for further emergent testing or inpatient evaluation. I discussed with the patient/guardian the need to see the ENT specialist for further evaluation of the symptoms. I discussed with the patient/guardian the need to see the primary care provider for further evaluation of the symptoms. 02/27 23:06 Order name: Strep; Complete Time: 23:25 snw 02/27 23:25 Order name: Throat Culture EDMS Administered Medications: 23:49 Drug: TORadol 60 mg Route: IM; Site: right gluteus; mg2 23:50 Follow up: Response: No adverse reaction; Medication administered at discharge. mg2 23:50 Drug: Zithromax 500 mg Route: PO; mg2 23:50 Follow up: Response: No adverse reaction; Medication administered at discharge. mg2 Disposition: 02/28 06:24 Co-signature as Attending Physician, Gavin Yin MD I agree with the assessment and tw4 plan of care. Attestation: The patient's history, exam findings, diagnostics, and a summary of any interventions or procedures was reviewed in detail with Vicky MENDEZ. Disposition: 02/27/18 23:39 Discharged to Home. Impression: Acute serous otitis media, right ear. - Condition is Stable. - Discharge Instructions: Otitis Media, Adult. - Prescriptions for Prednisone 20 mg Oral Tablet - take 2 tablet by ORAL route once daily for 5 days; 10 tablet. Zithromax 500 mg Oral Tablet - take 1 tablet by ORAL route once daily for 5 days; 5 tablet. - Medication Reconciliation Form, Thank You Letter, Antibiotic Education, Prescription Opioid Use form. - Follow up: Private Physician; When: 2 - 3 days; Reason: Recheck today's complaints, Continuance of care, Re-evaluation by your physician. Follow up: Emergency Department; When: As needed; Reason: Worsening of condition. Signatures: Dispatcher [employer] EDWA Vicky Tran FNP-C CATERING SALES MANAGER-Csnw Dennise Ivey, RN RN Gavin Yin MD MD tw4 Dwain Aquino RN RN mg2 Corrections: (The following items were deleted from the chart) 02/27 23:51 23:39 02/27/2018 23:39 Discharged to Home. Impression: Acute serous otitis media, right mg2 ear. Condition is Stable. Forms are Medication Reconciliation Form, Thank You Letter, Antibiotic Education, Prescription Opioid Use. Follow up: Private Physician; When: 2 - 3 days; Reason: Recheck today's complaints, Continuance of care, Re-evaluation by your physician. Follow up: Emergency Department; When: As needed; Reason: Worsening of condition. snw
[2018-02-27] MEDS ORDERED: AZITHROMYCIN 250 MG TAB ONE (23:48)
[2018-02-27] MEDS ORDERED: KETOROLAC 30 MG/ML INJ ONE (23:49)
[2018-02-27 23:59] VITALS: TEMP 98.2
[2018-02-28] VITALS: BP 134/75; O2SAT 100
== END 2018-02-27 23:51 | disposition home or self-care (01) ==
LOC: ER 22:04
DX: H65.01 Acute serous otitis media, right ear (principal); I10 Essential (primary) hypertension; Z88.0 Allergy status to penicillin; Z88.1 Allergy status to other antibiotic agents; Z88.3 Allergy status to other anti-infective agents; Z88.5 Allergy status to narcotic agent
CPT/HCPCS: 87070; 87081; 96372; 99283

== ENCOUNTER 2018-06-18 18:19 | Emergency (ER) | payer OTHER, BC ==
--- NOTE | 2018-06-18 19:05 | ER ---
Nurse's Notes [facility] Name: Silvia Bradford Age: 23 yrs Sex: Female : 1995 Arrival Date: 06/18/2018 Time: 18:22 Bed 15 Private MD: Diagnosis: Otalgia, bilateral;Otalgia and effusion of ear Presentation: 06/18 18:41 Presenting complaint: Patient states: bilateral ear pain x > 2 weeks. Transition of ss care: patient was not received from another setting of care. Onset of symptoms was May 2018. Risk Assessment: Do you want to hurt yourself or someone else? Patient reports no desire to harm self or others. Initial Sepsis Screen: Does the patient meet any 2 criteria? No. Patient's initial sepsis screen is negative. Does the patient have a suspected source of infection? No. Patient's initial sepsis screen is negative. Care prior to arrival: None. 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 - Social history:: Smoking status: Patient/guardian denies using tobacco. - Ebola Screening: : Patient denies exposure to infectious person Patient denies travel to an Ebola-affected area in the 21 days before illness onset. Screenin:16 Abuse screen: Denies threats or abuse. Nutritional screening: No deficits noted. jd3 Tuberculosis screening: No symptoms or risk factors identified. Fall Risk Ambulatory Aid- None/Bed Rest/Nurse Assist (0 pts). Gait- Normal/Bed Rest/Wheelchair (0 pts) Mental Status- Oriented to own ability (0 pts). Total Ambrocio Fall Scale indicates No Risk (0-24 pts). Assessment: 19:15 General: Appears in no apparent distress. uncomfortable, Behavior is calm, cooperative, jd3 appropriate for age. Pain: Complains of pain in right ear and left ear. Neuro: Level of Consciousness is awake, alert, obeys commands, Oriented to person, place, time, situation. Cardiovascular: Capillary refill < 3 seconds Patient's skin is warm and dry. Respiratory: Airway is patent Respiratory effort is even, unlabored, Respiratory pattern is regular, symmetrical. GI: No signs and/or symptoms were reported involving the gastrointestinal system. : No signs and/or symptoms were reported regarding the genitourinary system. EENT: Reports pain in left ear and right ear. Derm: Skin is intact, Skin is dry, Skin is normal, Skin temperature is warm. Musculoskeletal: Circulation, motion, and sensation intact. Range of motion: intact in all extremities. 19:28 Reassessment: Patient appears in no apparent distress at this time. Patient and/or jd3 family updated on plan of care and expected duration. Pain level reassessed. Patient is alert, oriented x 3, equal unlabored respirations, skin warm/dry/pink. Patient states feeling better. Vital Signs: 18:41 BP 141 / 88; Pulse 89; Resp 16; Pulse Ox 100% on R/A; Weight 81.65 kg; Height 5 ft. 6 ss in. (167.64 cm); Pain 10/10; 18:41 Body Mass Index 29.05 (81.65 kg, 167.64 cm) ED Course: 18:22 Patient arrived in ED. rg4 18:36 Gavin Yin MD is Attending Physician. tw4 18:41 Arm band placed on right wrist. ss 18:42 Triage completed. ss 19:00 Ritchie Smith, RN is Primary Nurse. jd3 19:17 Patient has correct armband on for positive identification. Bed in low position. Call jd3 light in reach. Side rails up X 1. Adult w/ patient. 19:17 No provider procedures requiring assistance completed. Patient did not have IV access jd3 during this emergency room visit. Administered Medications: 19:14 Drug: TORadol 60 mg Route: IM; Site: right gluteus; jd3 19:29 Follow up: Response: No adverse reaction jd3 Outcome: 19:05 Discharge ordered by . tw4 19:28 Discharged to home ambulatory, with family. jd3 19:28 Condition: stable 19:28 Discharge instructions given to patient, family, Instructed on discharge instructions, follow up and referral plans. Demonstrated understanding of instructions, follow-up care, Prescriptions given X 1. 19:30 Patient left the ED. jd3 Signatures: Tomasa Wise, RN Alyson Villarreal rg4 Ritchie Smith RN RN jd3 Gavin Yin MD MD tw4
[2018-06-18] MEDS ORDERED: KETOROLAC 30 MG/ML INJ ONE (19:19)
[2018-06-18 20:11] VITALS: BP 141/88; O2SAT 100
--- NOTE | 2018-06-19 19:32 | EDPHYS ---
Physician Documentation [facility] Name: Silvia Bradford Age: 23 yrs Sex: Female : 1995 Arrival Date: 06/18/2018 Time: 18:22 Bed 15 Private MD: ED Physician Gavin Yin HPI: 06/19 02:32 This 23 yrs old Female presents to ER via Ambulatory with complaints of Ear tw4 Pain. 02:33 The patient presents with pain. The complaints affect the right ear and left ear. tw4 Onset: The symptoms/episode began/occurred today. Modifying factors: The symptoms are alleviated by nothing, the symptoms are aggravated by nothing. Associated signs and symptoms: The patient has no apparent associated signs or symptoms. Severity of symptoms: At their worst the symptoms were moderate in the emergency department the symptoms are unchanged. The patient has not experienced similar symptoms in the past. ORDER ENTRY: 06/18 19:29 LMP N/A - unknown jd3 Historical: - Allergies: 18:43 Bactrim; ss 18:43 Clindamycin; ss 18:43 Demerol; ss 18:43 PENICILLINS; ss - PMHx: 18:43 EAR ACHES; Hypertension; Migraines; ss - PSHx: 18:43 Cholecystectomy; Tonsillectomy; Adenoids; Ear Tubes; ear surg with cartlige repair; ss - Immunization history:: Adult Immunizations up to date. - Social history:: Smoking status: Patient/guardian denies using tobacco. - Ebola Screening: : Patient denies exposure to infectious person Patient denies travel to an Ebola-affected area in the 21 days before illness onset. ROS: 06/19 02:33 Constitutional: Negative for fever, chills, and weight loss, Cardiovascular: Negative tw4 for chest pain, palpitations, and edema, Respiratory: Negative for shortness of breath, cough, wheezing, and pleuritic chest pain, Abdomen/GI: Negative for abdominal pain, nausea, vomiting, diarrhea, and constipation. ENT: Positive for ear pain, Negative for injury or acute deformity, drainage from ear(s), foreign body sensation, Gum pain hearing loss, pulling at ears, Teeth pain Exam: 02:33 Constitutional: This is a well developed, well nourished patient who is awake, alert, tw4 and in no acute distress. Head/Face: Normocephalic, atraumatic. Neck: Trachea midline, no thyromegaly or masses palpated, and no cervical lymphadenopathy. Supple, full range of motion without nuchal rigidity, or vertebral point tenderness. No Meningismus. Chest/axilla: Normal chest wall appearance and motion. Nontender with no deformity. No lesions are appreciated. Cardiovascular: Regular rate and rhythm with a normal S1 and S2. No gallops, murmurs, or rubs. Normal PMI, no JVD. No pulse deficits. Respiratory: Lungs have equal breath sounds bilaterally, clear to auscultation and percussion. No rales, rhonchi or wheezes noted. No increased work of breathing, no retractions or nasal flaring. Abdomen/GI: Soft, non-tender, with normal bowel sounds. No distension or tympany. No guarding or rebound. No evidence of tenderness throughout. 02:33 ENT: External ear(s): are unremarkable, Ear canal(s): no acute changes, TM's: loss of bony landmarks, on the right, PE tubes visualized. PE tubes patent, intact, draining in ear canal Vital Signs: 06/18 18:41 BP 141 / 88; Pulse 89; Resp 16; Pulse Ox 100% on R/A; Weight 81.65 kg; Height 5 ft. 6 ss in. (167.64 cm); Pain 10/10; 18:41 Body Mass Index 29.05 (81.65 kg, 167.64 cm) ss MDM: 18:36 Patient medically screened. tw4 06/19 02:33 Differential diagnosis: otitis media, otitis externa, ruptured TM, foreign body, acute tw4 otalgia. Data reviewed: vital signs, nurses notes. Counseling: I had a detailed discussion with the patient and/or guardian regarding: the historical points, exam findings, and any diagnostic results supporting the discharge/admit diagnosis. Special discussion: I discussed with the patient/guardian in detail that at this point there is no indication for admission to the hospital. It is understood, however, that if the symptoms persist or worsen the patient needs to return immediately for re-evaluation. Administered Medications: 06/18 19:14 Drug: TORadol 60 mg Route: IM; Site: right gluteus; jd3 19:29 Follow up: Response: No adverse reaction jd3 Disposition: 06/19 02:36 Chart complete. tw4 Disposition: 06/18/18 19:05 Discharged to Home. Impression: Otalgia, bilateral, Otalgia and effusion of ear. - Condition is Stable. - Discharge Instructions: Otitis Externa, [id number]. - Prescriptions for Zithromax Z- Will 250 mg Oral Tablet - take 1 tablet by ORAL route as directed for 5 days Day 1 - take two (2) tablets one time. Day 2, 3, 4 , 5 take one (1) tablet once daily.; 6 tablet. - Medication Reconciliation Form, Thank You Letter, Antibiotic Education, Prescription Opioid Use form. - Follow up: Private Physician; When: Upon discharge from the Emergency Department; Reason: Recheck today's complaints, Continuance of care. - Problem is an ongoing problem. - Symptoms are unchanged. Signatures: Tomasa Wise RN RN ss Ritchie Smith RN RN jd3 Gavin Yin MD MD tw4 Corrections: (The following items were deleted from the chart) 06/18 19:30 19:05 06/18/2018 19:05 Discharged to Home. Impression: Otalgia, bilateral; Otalgia and jd3 effusion of ear. Condition is Stable. Forms are Medication Reconciliation Form, Thank You Letter, Antibiotic Education, Prescription Opioid Use. Follow up: Private Physician; When: Upon discharge from the Emergency Department; Reason: Recheck today's complaints, Continuance of care. Problem is an ongoing problem. Symptoms are unchanged. tw4
== END 2018-06-18 19:30 | disposition home or self-care (01) ==
LOC: ER 18:19
DX: H92.03 Otalgia, bilateral (principal)
CPT/HCPCS: 96372; 99283

== ENCOUNTER 2018-10-20 21:37 | Emergency (ER) | payer BC ==
--- NOTE | 2018-10-20 22:01 | EDPHYS ---
Physician Documentation [facility] Name: Silvia Bradford Age: 23 yrs Sex: Female : 1995 Arrival Date: 10/20/2018 Time: 21:43 Bed 17 Private MD: ED Physician Pop Culp HPI: 10/20 22:36 This 23 yrs old Female presents to ER via Ambulatory with complaints of Ear snw Pain, Productive Cough, Sore Throat, Chest Tightness. 22:36 The patient or guardian reports cough, with productive sputum, blood tinged. Onset: The snw symptoms/episode began/occurred 4 day(s) ago, and became persistent. Modifying factors: The symptoms are alleviated by nothing. Associated signs and symptoms: Pertinent positives: sore throat, nasal congestion. The patient has experienced similar episodes in the past. ENT - ciprodex refilled. Historical: - Allergies: 21:45 Bactrim; la1 21:45 Clindamycin; la1 21:45 Demerol; la1 21:45 PENICILLINS; la1 - PMHx: 21:45 EAR ACHES; Hypertension; Migraines; la1 - PSHx: 21:45 Tonsillectomy; Ear Tubes; Cholecystectomy; la1 - Immunization history:: Adult Immunizations up to date. - Social history:: Smoking status: Patient/guardian denies using tobacco. - Ebola Screening: : No symptoms or risks identified at this time. ROS: 22:09 Constitutional: Negative for fever, chills, and weight loss, Eyes: Negative for injury, snw pain, redness, and discharge, Neck: Negative for injury, pain, and swelling, Cardiovascular: Negative for chest pain, palpitations, and edema, Abdomen/GI: Negative for abdominal pain, nausea, vomiting, diarrhea, and constipation, Back: Negative for injury and pain, : Negative for injury, bleeding, discharge, and swelling, MS/Extremity: Negative for injury and deformity, Skin: Negative for injury, rash, and discoloration, Neuro: Negative for headache, weakness, numbness, tingling, and seizure. 22:09 ENT: Positive for ear pain, nasal discharge, sinus congestion. 22:09 Respiratory: Positive for cough, "sounds productive", bronchitic cough. Exam: 22:09 Constitutional: This is a well developed, well nourished patient who is awake, alert, snw and in no acute distress. Head/Face: Normocephalic, atraumatic. Eyes: Pupils equal round and reactive to light, extra-ocular motions intact. Lids and lashes normal. Conjunctiva and sclera are non-icteric and not injected. Cornea within normal limits. Periorbital areas with no swelling, redness, or edema. Neck: Trachea midline, no thyromegaly or masses palpated, and no cervical lymphadenopathy. Supple, full range of motion without nuchal rigidity, or vertebral point tenderness. No Meningismus. Chest/axilla: Normal chest wall appearance and motion. Nontender with no deformity. No lesions are appreciated. Cardiovascular: Regular rate and rhythm with a normal S1 and S2. No gallops, murmurs, or rubs. Normal PMI, no JVD. No pulse deficits. Abdomen/GI: Soft, non-tender, with normal bowel sounds. No distension or tympany. No guarding or rebound. No evidence of tenderness throughout. Back: No spinal tenderness. No costovertebral tenderness. Full range of motion. Skin: Warm, dry with normal turgor. Normal color with no rashes, no lesions, and no evidence of cellulitis. MS/ Extremity: Pulses equal, no cyanosis. Neurovascular intact. Full, normal range of motion. Neuro: Awake and alert, GCS 15, oriented to person, place, time, and situation. Cranial nerves II-XII grossly intact. Motor strength 5/5 in all extremities. Sensory grossly intact. Cerebellar exam normal. Normal gait. 22:09 ENT: TM's: decreased mobility, bilateral cholesteatomas with erythema, Nose: Nasal mucosa: edematous, nasal drainage, that is minimal, Mouth: is normal, Posterior pharynx: erythema, that is mild, Voice: is normal. 22:09 Respiratory: the patient does not display signs of respiratory distress, Respirations: normal, Breath sounds: bronchial sounds, that are moderate, are heard diffusely. Vital Signs: 21:44 BP 148 / 93; Pulse 89; Resp 16; Temp 98.4; Pulse Ox 98% on R/A; Weight 78.93 kg; Height la1 5 ft. 6 in. (167.64 cm); 22:30 BP 147 / 99; Pulse 98; Resp 19 S; Temp 98.5(O); Pulse Ox 100% on R/A; cc3 21:44 Body Mass Index 28.08 (78.93 kg, 167.64 cm) la1 MDM: 21:47 Patient medically screened. snw Administered Medications: 22:25 Drug: Decadron 8 mg Route: PO; cc3 22:34 Follow up: Response: No adverse reaction cc3 22:25 Drug: Tussionex Pennkinetic ER 5 ml Route: PO; cc3 22:34 Follow up: Response: No adverse reaction cc3 22:25 Drug: Zithromax 500 mg Route: PO; cc3 22:34 Follow up: Response: No adverse reaction cc3 Disposition: 10/21 01:58 Co-signature as Attending Physician, Pop Culp MD. Disposition: 10/20/18 22:01 Discharged to Home. Impression: Unspecified bacterial pneumonia. - Condition is Stable. - Discharge Instructions: Acute Bronchitis, Adult, Sinusitis, Adult. - Prescriptions for Nasonex 50 mcg/actuation Nasal spray,non- aerosol - spray 1 spray by INTRANASAL route 2 times per day; 1 Cartridge. Flovent HFA 110 mcg/actuation Inhalation Aerosol - inhale 2 puffs by INHALATION route 2 times per day; 1 Cartridge. Albuterol Sulfate 90 mcg/actuation - inhale 1-2 puff by INHALATION route every 4-6 hours; 1 Inhaler. - Medication Reconciliation Form, Thank You Letter, Antibiotic Education, Prescription Opioid Use form. - Follow up: Private Physician; When: 2 - 3 days; Reason: Recheck today's complaints, Continuance of care, Re-evaluation by your physician. Follow up: Emergency Department; When: As needed; Reason: Fever > 102 F, Trouble breathing, Worsening of condition. Signatures: Vicky Tran, JAYME-C EXTERNAL AUDITOR-Csnw Yassine Beasley RN RN la Pop Culp MD MD gs Cordel, Charlene cc3 Corrections: (The following items were deleted from the chart) 10/20 22:34 22:01 10/20/2018 22:01 Discharged to Home. Impression: Unspecified bacterial pneumonia. cc3 Condition is Stable. Forms are Medication Reconciliation Form, Thank You Letter, Antibiotic Education, Prescription Opioid Use. Follow up: Private Physician; When: 2 - 3 days; Reason: Recheck today's complaints, Continuance of care, Re-evaluation by your physician. Follow up: Emergency Department; When: As needed; Reason: Fever > 102 F, Trouble breathing, Worsening of condition. snw
--- NOTE | 2018-10-20 22:01 | ER ---
Nurse's Notes [facility] Name: Silvia Bradford Age: 23 yrs Sex: Female : 1995 Arrival Date: 10/20/2018 Time: 21:43 Bed 17 Private MD: Diagnosis: Unspecified bacterial pneumonia Presentation: 10/20 21:45 Presenting complaint:. Presenting complaint: Patient states: 2 days of cough and la1 congestion, blood in sputum yesterday and when I sneeze my chest tightens up real bad. I also think I have an ear infection. Transition of care: patient was not received from another setting of care. Onset of symptoms was October 20, 2018. Risk Assessment: Do you want to hurt yourself or someone else? Patient reports no desire to harm self or others. Initial Sepsis Screen: Does the patient meet any 2 criteria? No. Patient's initial sepsis screen is negative. Does the patient have a suspected source of infection? No. Patient's initial sepsis screen is negative. Care prior to arrival: None. 21:45 Method Of Arrival: Ambulatory la1 21:45 Acuity: RIZWANA 3 la1 Triage Assessment: 21:48 General: Appears in no apparent distress. comfortable, Behavior is calm, cooperative, cc3 appropriate for age. Respiratory: Reports cough that is productive, since 2 days Onset: The symptoms/episode began/occurred 2 days, the patient has moderate shortness of breath. Historical: - Allergies: 21:45 Bactrim; la1 21:45 Clindamycin; la1 21:45 Demerol; la1 21:45 PENICILLINS; la1 - PMHx: 21:45 EAR ACHES; Hypertension; Migraines; la1 - PSHx: 21:45 Tonsillectomy; Ear Tubes; Cholecystectomy; la1 - Immunization history:: Adult Immunizations up to date. - Social history:: Smoking status: Patient/guardian denies using tobacco. - Ebola Screening: : No symptoms or risks identified at this time. Screenin:48 Abuse screen: Denies threats or abuse. Denies injuries from another. Nutritional cc3 screening: No deficits noted. Tuberculosis screening: No symptoms or risk factors identified. Fall Risk Ambulatory Aid- None/Bed Rest/Nurse Assist (0 pts). Gait- Normal/Bed Rest/Wheelchair (0 pts) Mental Status- Oriented to own ability (0 pts). Assessment: 21:48 Pain: Complains of pain in throat. Cardiovascular: Rhythm is regular. Respiratory: cc3 Airway is patent Respiratory effort is even, unlabored, Respiratory pattern is regular, symmetrical. 21:48 General: Appears in no apparent distress. comfortable, Behavior is calm, cooperative, cc3 appropriate for age. Neuro: Level of Consciousness is awake, alert, obeys commands, Oriented to person, place, time, situation, Appropriate for age. Respiratory: Breath sounds are clear bilaterally. GI: Abdomen is round non-distended. : No signs and/or symptoms were reported regarding the genitourinary system. EENT: No signs and/or symptoms were reported regarding the EENT system. Derm: No signs and/or symptoms reported regarding the dermatologic system. Musculoskeletal: Circulation, motion, and sensation intact. Range of motion: intact in all extremities. 22:34 Reassessment: Patient appears in no apparent distress at this time. Patient and/or cc3 family updated on plan of care and expected duration. Pain level reassessed. Patient is alert, oriented x 3, equal unlabored respirations, skin warm/dry/pink. EVER Perry discharged the patient home with prescription given. No IV cannula in situ. Patient left ER vitally stable and ambulatory with her family. Patient denies pain at this time. Patient states feeling better. Patient states symptoms have improved. Vital Signs: 21:44 BP 148 / 93; Pulse 89; Resp 16; Temp 98.4; Pulse Ox 98% on R/A; Weight 78.93 kg; Height la1 5 ft. 6 in. (167.64 cm); 22:30 BP 147 / 99; Pulse 98; Resp 19 S; Temp 98.5(O); Pulse Ox 100% on R/A; cc3 21:44 Body Mass Index 28.08 (78.93 kg, 167.64 cm) la1 ED Course: 21:43 Patient arrived in ED. am2 21:45 Arm band placed on right wrist. la1 21:46 Triage completed. la1 21:47 Vicky Tran FNP-C [facility]. snw 21:47 Pop Culp MD is Attending Physician. snw 21:48 Karina Brewer is Primary Nurse. cc3 21:48 Patient has correct armband on for positive identification. Bed in low position. Call cc3 light in reach. Side rails up X 1. Pulse ox on. NIBP on. 22:35 No provider procedures requiring assistance completed. Patient did not have IV access cc3 during this emergency room visit. Administered Medications: 22:25 Drug: Decadron 8 mg Route: PO; cc3 22:34 Follow up: Response: No adverse reaction cc3 22:25 Drug: Tussionex Pennkinetic ER 5 ml Route: PO; cc3 22:34 Follow up: Response: No adverse reaction cc3 22:25 Drug: Zithromax 500 mg Route: PO; cc3 22:34 Follow up: Response: No adverse reaction cc3 Outcome: 22:01 Discharge ordered by . lfor 22:34 Patient left the ED. cc3 22:34 Discharged to home ambulatory, with family. cc3 22:34 Condition: stable 22:34 Discharge instructions given to patient, family, Instructed on discharge instructions, follow up and referral plans. medication usage, Demonstrated understanding of instructions, follow-up care, medications, Prescriptions given X 3. Signatures: Vicky Tran, FINANCIAL SERVICES CONSULTANT-C FINANCIAL SERVICES CONSULTANT-Csnw Yassine Beasley RN RN Rosa Santacruz Charlene cc3
[2018-10-20] MEDS ORDERED: HYDROCODONE/CHLORPHEN 5 ML/OSYR ONE (22:37)
[2018-10-20] MEDS ORDERED: DEXAMETHASONE 4 MG TAB ONE (22:37)
[2018-10-20] MEDS ORDERED: AZITHROMYCIN 250 MG TAB ONE (22:37)
[2018-10-20 22:41] VITALS: BP 148/93; TEMP 98.4; O2SAT 98
== END 2018-10-20 22:34 | disposition home or self-care (01) ==
LOC: ER 21:37
DX: J15.9 Unspecified bacterial pneumonia (principal); I10 Essential (primary) hypertension; Z88.1 Allergy status to other antibiotic agents; Z88.5 Allergy status to narcotic agent; Z88.0 Allergy status to penicillin
CPT/HCPCS: 99283